=== PATIENT | male | born 1975 | race Caucasian/White ===

== ENCOUNTER 2021-05-04 23:17 | Emergency (ER) | payer OTHER, SELFPAY ==
[2021-05-04 23:22] VITALS: BP 145/93; PULSE 80; RESP 14; TEMP 37.4; O2SAT 100
--- NOTE | 2021-05-04 23:40 | ED.GENADULT ---
HPI - General Adult General Chief complaint: Dental/Oral Stated complaint: Left sided dental pain Time Seen by Provider: 05/04/21 23:36 History of Present Illness HPI narrative: Patient is a 46-year-old gentleman who presents emerged part with chief complaint of left upper molar pain. Patient states he noticed started having some heat and cold sensitivity and then noticed now that is becoming painful and shooting up into his maxillary sinus. The patient denies fever denies chills reports the pain is worse with eating. Patient reports he has not seen a dentist about it Related Data Allergies Allergy/AdvReac Type Severity Reaction Status Date / Time No Known Drug Allergies Allergy Unknown Verified 07/29/17 18:54 Review of Systems Review of Systems: A 10 system review of systems was completed on the patient and is negative except for what is stated in the HPI. Nursing and ancillary documentation was reviewed. Exam Narrative: GENERAL: Well-appearing, well-nourished, and in no acute distress. HEAD: Normocephalic, atraumatic. EYES: PERRLA and EOMI. ENT: Nares clear, no rhinorrhea or epistaxis. Mucous membranes moist. There is tenderness to palpation in the left upper back molar. There is no fluctuance present NECK: Supple. CHEST: Clear to auscultation. No respiratory distress. HEART: Regular rate and rhythm. No murmur heard. Normal peripheral pulses. ABDOMEN: Soft, nontender, nondistended, normal active bowel sounds. EXTREMITIES: Normal range of motion. No edema. SKIN: Warm, dry, no rash. NEURO: No focal deficits. Alert and oriented x3. PSYCH: Normal mood and affect. Course Vital Signs Vital signs: Vital Signs Temperature 37.4 C 05/04/21 23:22 Pulse Rate 80 05/04/21 23:22 Respiratory Rate 14 05/04/21 23:22 Blood Pressure 145/93 H 05/04/21 23:22 Pulse Oximetry 100 05/04/21 23:22 Temperature 37.4 C 05/04/21 23:22 Pulse Rate 80 05/04/21 23:22 Respiratory Rate 14 05/04/21 23:22 Blood Pressure 145/93 H 05/04/21 23:22 Pulse Oximetry 100 05/04/21 23:22 Medical Decision Making Vital Signs Vital Signs: Vital Signs Temperature 37.4 C 05/04/21 23:22 Pulse Rate 80 05/04/21 23:22 Respiratory Rate 14 05/04/21 23:22 Blood Pressure 145/93 H 05/04/21 23:22 Pulse Oximetry 100 05/04/21 23:22 Temperature 37.4 C 05/04/21 23:22 Pulse Rate 80 05/04/21 23:22 Respiratory Rate 14 05/04/21 23:22 Blood Pressure 145/93 H 05/04/21 23:22 Pulse Oximetry 100 05/04/21 23:22 Discharge Plan Discharge Clinical Impression: Dental caries Patient Disposition: Home, Self-Care Condition: Stable Instructions: Antibiotic Form, Dental Abscess (ED), Toothache (ED) Prescriptions: New amoxicillin 500 mg capsule 500 mg PO Q12H 10 Days Qty: 20 RF: 0 ibuprofen 800 mg tablet 800 mg PO TID PRN (Reason: pain) Qty: 30 RF: 0 Follow-up/Referrals: [facility] [Primary Care Provider] - Time of Disposition: 23:45
[2021-05-04 23:42] VITALS: BP 145/75; PULSE 88; RESP 16; TEMP 36.8; O2SAT 100
[2021-05-05] MEDS: AMOXICILLIN 500 MG CAPSULE PO (00:07)
[2021-05-05] MEDS: HYDROcodone/acetaminophen (*CRX) 5-325 MG TABLET 1 TAB PO (00:07)
== END 2021-05-05 00:08 | disposition home or self-care (01) ==
PROVIDERS: Emergency Provider Emergency Medicine
DX: K02.9 Dental caries, unspecified (principal)
CPT/HCPCS: 99283; A9270

== ENCOUNTER 2023-09-30 11:13 | Emergency (ER) | payer OTHER, SELFPAY ==
[2023-09-30 11:22] VITALS: BP 123/77; PULSE 94; RESP 16; TEMP 36.8; O2SAT 98
--- NOTE | 2023-09-30 11:25 | ED.GENADULT ---
HPI - General Adult General Chief complaint: Upper Respiratory Infection Stated complaint: Sinus Congestion Source: patient, RN notes reviewed and old records reviewed Mode of arrival: ambulatory Limitations: no limitations History of Present Illness HPI narrative: 48-year-old male patient presents to [facility] complaints of sinus congestion, sinus pain, cough for 12 days. Patient has been taking [id number] medications with no relief. Patient denies fever, chest pain, shortness of. Related Data Allergies Allergy/AdvReac Type Severity Reaction Status Date / Time No Known Drug Allergies Allergy Unknown Verified 07/29/17 18:54 Review of Systems Constitutional: Constitutional: Reports no additional constitutional complaints, Denies body ache(s), Denies chills, Denies fatigue, Denies fever(s) and Denies headache(s) Eyes: Eyes: Reports no additional eye complaints and Denies blurry vision ENT: Reports system reviewed and no additional complaints, except as documented, Denies vertigo, Denies dizziness, Denies ear discharge, Denies otalgia, Reports facial pain, Reports headache(s), Reports nasal congestion, Reports nasal discharge, Reports sinus pain, Reports sinus pressure and Denies sore throat Cardiovascular: Cardiovascular: Reports no additional cardiovascular complaints, Denies chest pain, Denies chest pain at rest, Denies rapid heart rate and Denies dyspnea Respiratory: Respiratory: Reports no additional respiratory complaints, Denies chest congestion, Reports cough, Denies pain on inspiration, Denies pain with cough and Denies dyspnea Gastrointestinal: Gastrointestinal: Denies abdominal pain, Denies diarrhea, Denies nausea and Denies vomiting Integumentary/Breasts: Skin/Breast: Denies rash Neurologic: Reports system reviewed and no additional complaints, except as documented, Denies vertigo, Denies dizziness and Denies headache(s) Endocrine: Endocrine: Denies fatigue PMFSH Comments At the time of my signature, I reviewed and agree with the nursing past medical, surgical, social, and family history. There is no relevant family history pertinent to the patient complaint. Exam Const: General: cooperative, healthy appearing, no acute distress and well nourished Nutritional Appearance: well nourished Orientation/consciousness: patient oriented x3 Limitations: no limitations HENMT: Head: normal to inspection and normocephalic Ears: external ears normal, TM's normal bilaterally, EAC's normal and mastoids normal Face/Nose/Sinus: Abnormal mucous membranes and turbinates present boggy and erythematous, Nasal discharge present purulent and normal facial exam Face and sinus: normal facial exam and sinus tenderness Mouth: Yes Normal oral and palatal mucosa present, Yes oropharynx normal and Yes moist mucous membranes Throat: tonsils normal, uvula midline and no uvular edema Eyes: General: appearance normal, both eyes and all related structures Sclera: sclerae normal Pupils: Equal, round and reactive pupils present Resp: Effort & Inspection: normal respiratory effort, able to speak in complete sentences, no audible wheezes, no cough, no respiratory distress and no retractions Auscultation: clear to auscultation bilaterally, no crackles, no rales, no rhonchi and no wheezes Cardio: Rate: regular rate Rhythm: regular rhythm Skin: General skin exam: normal color and no rashes or lesions noted Neuro: General: patient oriented x3 Cranial nerves: Yes Equal, round and reactive pupils present Psych: Appearance: grossly normal Mental Status: mental status grossly normal Speech and movement: Normal speech and movement present Affect: normal affect Course Course Emergency Course: Patient is aware of diagnosis, understands and agrees to treatment plan.? Anticipatory guidance given.? Patient agrees to follow-up as directed and is aware of reasons to seek care at the emergency department. Some parts of this dictation were gen
== END 2023-09-30 11:40 | disposition home or self-care (01) ==
PROVIDERS: Emergency Provider Registered Nurse
DX: J01.90 Acute sinusitis, unspecified (principal)
CPT/HCPCS: 99213; G0463